=== PATIENT | female | born 1955 | race Caucasian/White ===

== ENCOUNTER 2019-09-12 10:57 | Emergency (ER) | payer OTHER, SELFPAY ==
[2019-09-12] VITALS (8 sets, daily range): BP systolic 106–146; BP diastolic 60–99; PULSE 75–113; RESP 16–20; TEMP 36.8; O2SAT 92–99; BMI 37.2
--- NOTE | 2019-09-12 10:59 | EKG12_ITS ---
Test Reason : Blood Pressure : / mmHG Vent. Rate : 110 BPM Atrial Rate : 110 BPM P-R Int : 152 ms QRS Dur : 086 ms QT Int : 336 ms P-R-T Axes : 055 040 045 degrees QTc Int : 454 ms Sinus tachycardia Nonspecific ST abnormality Abnormal ECG Confirmed by KARL GURROLA, BUD ([id number]), legal editor AMANDO GARCIA ([id number]) on 09/15/2019 8:29:02 AM Referred By: No Primary Care Physician Confirmed By:BUD BARAJAS MD
--- NOTE | 2019-09-12 10:59 | CT_ITS ---
STUDY: CT BRAIN WITHOUT CONTRAST REASON FOR EXAM: Female, 64 years old with speech problem, altered level of consciousness and confusion. RADIATION DOSAGE (If Supplied By Facility): CTDIvol = ( 44.99 ) mGy, DLP = ( 796.11 ) mGycm TECHNIQUE: Transaxial CT imaging of the brain was performed without administration of intravenous contrast material. Multiplanar reformations are submitted for interpretation. Individualized dose optimization techniques were used for this CT. COMPARISON: No relevant priors. FINDINGS: Normal soft tissue structures. Normal calvarium. There is moderate cerebral atrophy with widening of the extra-axial spaces and ventricular dilatation. There are areas of decreased attenuation within the white matter tracts of the supratentorial brain, consistent with microvascular disease changes. There are small punctate calcifications of the basal ganglia which are seen in the aging brain as a normal variant. Normal brainstem. There is mild cerebellar atrophy. There is no intracranial hemorrhage. There are no findings of an acute ischemic infarction. Normal visualized paranasal sinuses. CT/Brain/Head without Contrast IMPRESSION: 1. Chronic involutional changes of the brain. 2. No CT evidence of acute intracranial hemorrhage. N.B. : The above information has been verbally conveyed by Chelle El MD to Madi Allen MD, on 09/12/2019 11:36:36 (ET). Electronically Signed: Chelle El MD at 11:37 EST , Service support ,
--- NOTE | 2019-09-12 10:59 | RAD_ITS ---
STUDY: X-RAY CHEST REASON FOR EXAM: Female, 64 years old. ALTERED LOC, CONFUSION. TECHNIQUE: Single AP portable view of the chest. COMPARISON: None. FINDINGS: The lungs are underexpanded. Interstitial markings are mildly prominent. There is no demonstrated pleural abnormality. There is mild cardiac enlargement. Normal mediastinum and marti. Normal visualized pulmonary arteries. Normal visualized aortic arch and descending thoracic aorta. There are diffuse degenerative changes of the visualized thoracic spine. Normal visualized ribs, clavicles, and shoulders. There is no demonstrated abnormality of the visualized soft tissue structures of the upper abdomen. RAD/Chest 1 View IMPRESSION: Underexpansion of the lungs. Mild cardiomegaly. Atelectasis. Electronically Signed: Farhana Butler MD at 12:14 EST Tel , Service support ,
--- NOTE | 2019-09-12 11:00 | CT_ITS ---
STUDY: CTA HEAD AND NECK WITH CONTRAST REASON FOR EXAM: Female, 64 years old patient with acute neurologic deficits with altered level of consciousness and confusion. RADIATION DOSAGE (If Supplied By Facility): CTDIvol = ( 18.07 ) mGy, DLP = ( 703.9 ) mGycm TECHNIQUE: CT angiography was performed with a multi-detector CT scanner. Data acquisition was obtained from the skull base through the vertex following intravenous administration of 100 mL of Isovue-370. MIP images were reconstructed from the axial data set. Post-processing of the angiographic images was performed, with multiplanar reformation and 3D reconstruction. Individualized dose optimization techniques were used for this CT. COMPARISON: No relevant priors. FINDINGS: Normal bilateral petrous carotid arteries. Normal right cavernous carotid artery with a normal supraclinoid bifurcation. There is elongation and tortuosity of the left cavernous carotid artery without a demonstrated hemodynamically significant stenosis. Normal right A1 segments of the anterior cerebral artery. Normal left A1 segments of the anterior cerebral artery. Normal intact anterior communicating artery (ACOM). Normal bilateral A2 segments of the anterior cerebral arteries. Normal right M1 and M2 segments of the middle cerebral arteries, with a normal M1 bifurcation. Normal left M1 and M2 segments of the middle cerebral arteries, with a normal M1 bifurcation. There is a persistent origin of the right posterior cerebral artery with absence of the posterior communicating artery (PCOM). Normal left posterior communicating artery (PCOM). Normal bilateral vertebral arteries. Normal basilar artery with a normal basilar bifurcation. The visualized bilateral superior cerebellar (SCA) arteries are normal. There is absence of the right P1 segment of the posterior cerebral arteries with a normal left P1 segment. Normal visualized bilateral P2 and P3 segments of the posterior cerebral arteries. There is no demonstrated aneurysm of the [place]. There are involution changes of the brain. There is a asymmetric size of the transverse sinuses. The right transverse sinus appears atretic possibly related to stricture. The left transverse sinus is of normal size. Bilateral sigmoid sinuses are present. AORTIC ARCH: Normal visualized aortic arch. Normal origins of the brachiocephalic, left common carotid, and left subclavian arteries. The left vertebral artery arises from the aortic arch. RIGHT CAROTID ARTERIES: Normal right common carotid artery (CCA). Normal right common carotid bulb. Normal origin of the right internal carotid (ICA) artery without a hemodynamically significant stenosis. There is atherosclerotic tortuous elongation of the cervical portion of the right internal carotid artery. Normal origin of the right external carotid artery (ECA). LEFT CAROTID ARTERIES: Normal left common carotid artery (CCA). Normal left common carotid bulb. Normal origin of the left internal carotid (ICA) artery without a hemodynamically significant stenosis. Normal visualized cervical portion of the left internal carotid artery. Normal origin of the left external carotid artery (ECA). VERTEBRAL ARTERIES: Normal bilateral vertebral arteries. NECK ANATOMY: Normal bilateral parotid glands. Normal bilateral market news reporter spaces. Normal bilateral parapharyngeal spaces. Normal bilateral carotid spaces. Normal bilateral sublingual and submandibular glands and spaces. Normal visualized nasopharynx. Normal retropharyngeal space. Normal perivertebral space. Normal visualized bilateral faucial tonsils. The visualized tongue, tongue base and oropharynx are normal. The visualized cervical lymph nodes (levels I-) are within normal size limits, and maintain normal morphology. There is no demonstrated solid or cystic mass lesion. There is no abnormal contrast enhancement. Normal epiglottis, bilateral vallecula and hypopharynx. The pre-epiglottic and paraglottic adipose spaces are normal. Normal visualized bilateral piriform sinuses, aryepiglottic folds, vocal cords, and arytenoid-cricoid articulations. Normal subglottic trachea. Normal bilateral lobes of the thyroid gland. Normal visualized pulmonary apices. Normal visualized paranasal sinuses. There is multilevel degenerative changes of the cervical spine. CT/CTA Head AND Neck W/ Contrast IMPRESSION: No CT evidence for hemodynamically significant stenosis, thrombosis or dissection. Electronically Signed: Chelle El MD at 11:58 EST , Service support ,
--- NOTE | 2019-09-12 11:02 | ED.DCSUM_ITS ---
History of Present Illness Chief Complaint: Alt LOC Informant: Patient Onset: Today - presumably; last time seen well unknown Context: - - unk Narrative: Patient apparently drove herself to [place] today. There were people in [place] that know her that were wondering where she was asked to they went out in the parking lot and found her sitting in her car and she was not acting right. They called EMS. EMS had similar evaluation 2 hours, she was confused not able to follow commands appropriately. Her blood sugar is 80. We do not know past medical history, medications, etc. It is unknown when she was last seen normal. The time of onset was unknown but it did appear that she drove herself and parked. They were very close to the hospital when her paramedics found her. They had time to get a blood sugar and bring her to the hospital, but not to place an IV, etc. She was not lateralizing for EMS peripherally. Past Medical History - Allergies and Home Meds Allergies/Adverse Reactions: Allergies Unable to Assess Allergy (Verified 09/12/19 11:35) Primary Care Physician: NOT,DEFINED [NON-STAFF] - Review of Systems ROS: Unable to Obtain STROKE Inital Vital Signs reviewed: Yes - NIHSS Initial 1a Level of Consciousness: 0 1b LOC Questions (Score 2 if aphasic/stupor): 2 1c LOC Commands (Only score 1st attempt): 1 2 Best Gaze (If aphasic, use reflexive mvmts.): 0 3 Visual: 0 4 Facial Palsy: 0 5 Motor Arm Right (UN = amputation/fusion): 0 5 Motor Arm Left: 0 6 Motor Leg Right: 3 6 Motor Leg Left: 3 7 Limb ataxia (Only + if out of proportion): 0 8 Sensory (Aphasia/stupor=0 or 1, coma=2): 1 9 Best Language: 2 10 Dysarthria (mute, coma=2, intubated=UN): 0 11 Extinction and Inattention (only scored if +): 0 Total Score: 12 General: Well nourished, Well developed Head: Normocephalic, Atraumatic Eyes: Perrl, EOMI ENT: Moist mucous membranes, No rhinorrhea Neck: Supple, Nontender, - - no carotid bruits bilat Cardiovascular: Regular rate, Regular rhythm, No murmurs, Tachycardia - mild Respiratory: No distress, CTA bilaterally, Chest nontender Abdomen: Soft, Nontender, Nondistended, Normal bowel sounds Back: Nontender, Normal Inspection Extremities: Nontender, No edema Skin: Normal color, No rash Neurological: Alert, Cranial nerves II-XII grossly intact, Confused - Follows few commands. Does not answer questions appropriately. Gives one-word answers when she does answer, typically either yes or no. Psychological: - - flat affect Diagnostic/Tx/Re-eval Impressions Brain CT 09/12/19 10:59 IMPRESSION: 1. Chronic involutional changes of the brain. 2. No CT evidence of acute intracranial hemorrhage. N.B. : The above information has been verbally conveyed by Chelle El MD to Madi Allen MD, on 09/12/2019 11:36:36 (ET). Electronically Signed: Chelle El MD at 11:37 EST , Service support , ADDENDUM: 09/12/19 1144 IMPRESSION: 1. Chronic involutional changes of the brain. 2. No CT evidence of acute intracranial hemorrhage. N.B. : The above information has been verbally conveyed by Chelle El MD to Madi Allen MD, on 09/12/2019 11:36:36 (ET). Electronically Signed: Chelle El MD at 11:37 EST , Service support , ADDENDUM: 09/12/19 1203 IMPRESSION: 1. Chronic involutional changes of the brain. 2. No CT evidence of acute intracranial hemorrhage. N.B. : The above information has been verbally conveyed by Chelle El MD to Madi Allen MD, on 09/12/2019 11:36:36 (ET). Electronically Signed: Chelle El MD at 11:37 EST , Service support , Chest X-Ray 09/12/19 10:59 IMPRESSION: Underexpansion of the lungs. Mild cardiomegaly. Atelectasis. Electronically Signed: Farhana Butler MD at 12:14 EST Tel , Service support , Head/Neck CTA 09/12/19 11:00 IMPRESSION: No CT evidence for hemodynamically significant stenosis, thrombosis or dissection. Electronically Signed: Chelle El MD at 11:58 EST , Service support , ADDENDUM: 09/12/19 1206 09/12/19 10:59 Brain/Head without Contrast [CT] Stat Chest 1 View [RAD] Stat 09/12/19 11:00 CTA Head AND Neck W/ Contrast [CT] Stat Laboratory Results 09/12/19 09/12/19 09/12/19 11:25 11:25 11:25 WBC 9.4 RBC 4.67 Hgb 13.9 Hct 41.1 MCV 88.0 MCH 29.8 MCHC 33.8 RDW Std Deviation 42.5 RDW Coeff of Jacek 13.2 Plt Count 272 MPV 9.3 Immature Gran % (Auto) 0.300 Neut % (Auto) 46.7 L Lymph % (Auto) 44.5 H Daniels % (Auto) 5.1 Eos % (Auto) 2.9 Baso % (Auto) 0.5 Absolute Neuts (auto) 4.4 Absolute Lymphs (auto) 4.20 Nucleated RBC % 0 PT 13.8 INR 1.1 APTT 25.1 Sodium 140 Potassium 3.8 Chloride 107 Carbon Dioxide 26.0 Anion Gap 7 BUN 9 Creatinine 0.61 Estim Creat Clear Calc 86.05 Est GFR (MDRD) Af Amer 127 Est GFR (MDRD) Non-Af 105 BUN/Creatinine Ratio 14.7 Glucose 84 Calcium 8.4 L Troponin I < 0.015 Urine Color Urine Clarity Urine pH Ur Specific [place] Urine Protein Urine Glucose (UA) Urine Ketones Urine Occult Blood Urine Nitrite Urine Bilirubin Urine Urobilinogen Ur Leukocyte Esterase Urine RBC Urine WBC Ur Squamous Epith Cells Urine Bacteria Urine Mucus Urine Opiates Screen Urine Methadone Screen Ur Barbiturates Screen Ur Phencyclidine Scrn Ur Amphetamines Screen U Methamphetamin-MDMA U Benzodiazepines Scrn Urine Cocaine Screen U Cannabinoids Screen Ur Drug Screen Comment Ethyl Alcohol Acetone Level 09/12/19 09/12/19 09/12/19 11:25 11:50 11:50 WBC RBC Hgb Hct MCV MCH MCHC RDW Std Deviation RDW Coeff of Jacek Plt Count MPV Immature Gran % (Auto) Neut % (Auto) Lymph % (Auto) Daniels % (Auto) Eos % (Auto) Baso % (Auto) Absolute Neuts (auto) Absolute Lymphs (auto) Nucleated RBC % PT INR APTT Sodium Potassium Chloride Carbon Dioxide Anion Gap BUN Creatinine Estim Creat Clear Calc Est GFR (MDRD) Af Amer Est GFR (MDRD) Non-Af BUN/Creatinine Ratio Glucose Calcium Troponin I Urine Color Yellow Urine Clarity Clear Urine pH 5.0 Ur Specific [place] 1.010 Urine Protein Negative Urine Glucose (UA) Normal Urine Ketones 5 H Urine Occult Blood Negative Urine Nitrite Positive H Urine Bilirubin Negative Urine Urobilinogen Normal Ur Leukocyte Esterase Negative Urine RBC 0 SEEN Urine WBC 0 SEEN Ur Squamous Epith Cells 0 SEEN Urine Bacteria 2+ Urine Mucus 0 SEEN Urine Opiates Screen NEGATIVE Urine Methadone Screen NEGATIVE Ur Barbiturates Screen NEGATIVE Ur Phencyclidine Scrn NEGATIVE Ur Amphetamines Screen NEGATIVE U Methamphetamin-MDMA NEGATIVE U Benzodiazepines Scrn NEGATIVE Urine Cocaine Screen NEGATIVE U Cannabinoids Screen NEGATIVE Ur Drug Screen Comment Ethyl Alcohol 434.0 H* Acetone Level NEGATIVE - Medical Decision Making Stroke Team Activated: Yes - Given last time well unknown, CTA performed simultaneously with plain CT Was Patient considered for Endovascular Intervention?: No - neg CTA IV Alteplase (t-PA) Administered: No At 11:30 AM, I concluded my discussion with the stroke neurologist via tele- stroke at the patient's bedside. The patient appears encephalopathic. Other than difficulty speaking, she is not lateralizing right now. She is able to follow some commands, she can squeeze my hand and let go on command and do so with both hands. She is moving both legs, but will not follow commands and hold them up, they hit the bed immediately. Since we do not know the time of onset, we are unsure if she is within the 4.5-hour window for IV TPA. The plain CT is negative, the CT angiography is still pending and the neurologist was not able to see the CT angiography pictures. We discussed the possibility of getting diffusion-weighted MR imaging, however there is no family here with her to provide more history and therefore we are not able to screen her for metal/aneurysm clippings/etc. in order to safely get the MRI. As we were having this discussion, the social sciences instructor had just concluded talking with the over the phone, who said he refused to come in but that she drinks alcohol frequently and may be dehydrated. Her last drink was last night. She likes to drink vodka, out of the small individual bottles. We were not able to obtain information about how heavily she drinks or if it is daily or not. She takes no medications. The neurologist agrees that if the CT angiography is negative, since we are unable to get a stat DWI MR, IV TPA and thrombectomy both would not be indicated. Therefore, at this time, we are awaiting CT angiography results and I added ketones and alcohol level, considering alcoholic ketoacidosis in the differential as well. CT angiography returned negative. Her ketones are negative, she has no elevated anion gap, and her alcohol is 434. Drug screen was obtained and is negative. She has no evidence of infection. I think all of this is alcohol intoxication delirium. On reevaluation, she is more coherent. She has no focal neurologic deficits. She is still intoxicated but she is able to converse a little bit and follow commands better. I had 1 of her friends stepped out of the room at the patient's request, and discussed her alcohol use with her. She states she does not consider herself an alcoholic, does not drink daily, and is not necessarily in a frame of mind to admit that driving to [place] today with an alcohol level clearly way above 434 was a bad idea. I asked her if she wanted detox, she does not and wants to go home. We got her out of bed, she was able to stand and walk okay. Her is now here and is comfortable taking her home. I discussed all this with him, and the fact that she should not have been driving. He states that she seemed a little shaky this morning but did not appear to be that intoxicated when she left home. He states that she self medicates for chronic pain in her back and does not drink daily. Critical care time (excluding procedures): 30-74 minutes - 45 minutes, including time spent discussing with patient, family, consultants, and performing direct patient care at the bedside and repeat evaluations. ED Disposition - Plan for ED Patient: Disposition: Home or Assisted Living Diagnosis: Alcohol intoxication delirium Instructions: Alcohol Intoxication Referrals: Doctor,Your [STAFF PHYSICIAN] -
--- NOTE | 2019-09-12 11:40 | CM.ED ---
Social Work Consult: Responding to stroke alert Patient friend present in room. Patient friend stating that patient was found in car outside. Patient was found outside of the home where patient was going for [employer] this morning. Patient friend stating to not be sure how long patient has when out in the car before found. Patient friend then call 911 and patient was brought to the hospital. Patient friend stating to that patient spouse is in the way to the hospital and that patient friend is not aware of medical history of patient. Patient currently non-verbal. Waiting for patient spouse, after 15-20min patient spouse not present, attempted to call patient spouse to obtain medical history. Telephone call to patient spouse, Yon. Yon stating to be at home and plans to stay at home. Yon stating that patient has not medical history and does not take any medications. oYn stating that patient does not want to take pain medication because they are addictive. Yon stating to not be concerned about patient status due to this happening before and patient is dehydrated due to not eating and drinking low proof alcohol. Attempted to assess how much alcohol patient drank/drinks. Yon stating little bottles but sometimes too much. Yon stating that patient is in pain most of the time and treats pain with alcohol. Yon stating that patient was acting off this morning when patient left home. Encouraged Yon to come to the emergency room if any further questions need answered and support. Yon not responding with any plan to come or not. Yon stating to be available by phone. Patient friend remains at patient bedside. Updated Dr. Allen on phone conversation with Yon. Dre Cueva BOARD CERTIFIED MUSIC THERAPIST, PAT
[2019-09-12 11:41] LABS: Absolute Neutrophil Count 4.4 X10^3/uL (2.0-7.7); Basophil# 0.05 X10^3/uL; Basophil% 0.5 % (0-1); Eosinophil# 0.27 X10^3/uL; Eosinophils% 2.9 % (0-5); Hematocrit 41.1 % (37-47); Hemoglobin 13.9 g/dL (12.0-15.0); Lymphocyte % 44.5 % (19-41); Mean Corp Hgb Conc 33.8 g/dL (32-36); Mean Corpuscular Hgb 29.8 pg (27.0-32.0); Mean Platelet Vol. 9.3 fl (6.2-12.0); Monocyte# 0.48 X10^3/uL; Monocyte% 5.1 % (0-10); NRBC Flagged by Analyzer 0 % (0-5); Neutrophil % 46.7 % (47-70); Platelet Count 272 K/mm3 (150-450); RBC Distribution Width CV 13.2 % (11.6-14.6); RBC Distribution Width SD 42.5 fl (35.1-43.9); Red Blood Count 4.67 M/mm3 (4.2-5.4); White Blood Count 9.4 K/mm3 (4.4-11.0)
[2019-09-12] MEDS: 0.9% Normal Saline 1,000 ML 999 ML IV (11:41)
[2019-09-12 11:51] LABS: International Normalized Ratio 1.1; Partial Thromboplast Time 25.1 Seconds (24.1-36.2); Prothrombin Time (Protime)PT. 13.8 SECONDS (11.7-14.9)
[2019-09-12 11:55] LABS: Mucous, Urine 0 SEEN /hpf (<or=2+); Red Blood Cells-Urine 0 SEEN /hpf (0-5); Squamous Epithelial Cells - UA 0 SEEN /hpf (5-10); White Blood Cells 0 SEEN /hpf (0-5)
[2019-09-12 11:59] LABS: Anion Gap 7 (5-15); BUN 9 mg/dL (7-18); BUN/Creat Ratio 14.7 RATIO (10-20); Calcium,Total 8.4 mg/dL (8.5-10.1); Chloride 107 mmol/L (98-107); Creatinine, Serum 0.61 mg/dL (0.55-1.02); EST Glomerular Filtration Rate 105 mL/min (>60); Est Glom Filt Rate - Afr Amer 127 mL/min (>60); Estimated Creatinine Clearance 86.05 ml/min; Glucose 84 mg/dL (74-106); Potassium 3.8 mmol/L (3.5-5.1); Sodium Level 140 mmol/L (136-145)
[2019-09-12 12:03] LABS: Color, Urine Yellow (Yellow); Glucose, Dipstick Normal (Normal); Ketone-Dipstick 5 mg/dl (Negative); Leukocyte Esterase-Dipstick Negative /ul (Negative); Nitrite-Dipstick Positive (Negative); Occult Blood-Urine Negative /ul (Negative); Protein-Dipstick Negative (Negative); Urine Bilirubin Dipstick Negative (Negative); Urine Clarity Clear (Clear); Urine Urobilinogen Normal (Normal)
--- NOTE | 2019-09-12 12:09 | ED.RN ---
alcohol level 434, md aware.
[2019-09-12 12:13] LABS: Bacteria 2+ /hpf (None Seen)
--- NOTE | 2019-09-12 12:14 | ED.RN ---
notified Dr. Allen of alcohol 434
[2019-09-12 12:15] LABS: Amphetamine Urine VISTA NEGATIVE (<1000 ng/mL); Barbiturate Urine VISTA NEGATIVE (< 200 ng/mL); Benzodiazepine Urine VISTA NEGATIVE (< 200 ng/mL); Cocaine Urine VISTA NEGATIVE (< 300 ng/mL); Ecstacy Urine VISTA NEGATIVE (< 500 ng/mL); Methadone Urine VISTA NEGATIVE (< 300 ng/mL); PCP Urine VISTA NEGATIVE (< 25 ng/mL); THC Urine VISTA NEGATIVE (< 50 ng/mL); Vista UDS pH Range 5
--- NOTE | 2019-09-12 15:15 | CM.ED ---
Social Work Nursing staff notifying this [employer] social worker that patient is to discharge to home with spouse. Attempted to speak with patient about substance abuse, patient responding with a flat affect. Patient open to accepting substance abuse resources but did not want to engaged in a conversation about substance abuse. Patient spouse present and providing transportation home for patient. Patient did not engage with this elementary school social worker further. Dre GALVEZ, PAT
== END 2019-09-12 15:48 | disposition home or self-care (01) ==
PROVIDERS: Emergency Provider Emergency Medicine
DX: F10.121 Alcohol abuse with intoxication delirium (principal); Y90.8 Blood alcohol level of 240 mg/100 ml or more; R00.0 Tachycardia, unspecified; G89.29 Other chronic pain
CPT/HCPCS: 51702; 70450; 70496; 70498; 71045; 80048; 80307; 80320; 81001; 82009; 84484; 85025; 85610; 85730; 93005; 96360; 99285; J7030; Q9967; A4216; G0480